=== PATIENT | female | born 1965 | race Caucasian/White ===

== ENCOUNTER 2017-09-09 11:21 | Emergency (ER) | payer MEDICAID ==
[~2017-09-09] VITALS: Ht 165.1 cm; Wt 58.4 kg
[2017-09-09] MEDS ORDERED: LORazepam 1 MG tablet PO ONE (11:50)
[2017-09-09] MEDS ORDERED: CHLO25CA10 PO (12:28)
[2017-09-09] MEDS ORDERED: ondansetron 4mg rapidly disintigrating tab PO ONE (12:30)
[2017-09-09] MEDS ORDERED: ONDA4TAB9 SL (12:30)
[2017-09-09 12:33] VITALS: BP 150/95
== END 2017-09-09 12:51 | disposition home or self-care (01) ==
LOC: ER 11:22
DX: F10.239 Alcohol dependence with withdrawal, unspecified (principal); Z02.89 Encounter for other administrative examinations
CPT/HCPCS: 99284

== ENCOUNTER 2018-05-18 08:55 | Inpatient (IN) | payer MEDICAID | END 2018-05-21 13:24 | disposition home or self-care (01) | LOC: ER 08:55 → ED HOLD 13:46 → SUR 3N 15:46 ==